=== PATIENT | male | born 1945 | race Caucasian/White ===

== ENCOUNTER 2018-04-11 09:39 | Inpatient (IN) | payer OTHER ==
[~2018-04-11] VITALS: Ht 175.3 cm; Wt 110.2 kg
--- NOTE | ~2018-04-11 | EKG ---
[address] [address] ELECTROCARDIOGRAM REPORT Name: MINO RUSSELL Room #: 350-P ADM IN M.R.#: [id number] Admission: 04/11/18 Attend Phys: Scooter Interiano MD Discharge: Date of : 45 Report #: [id number] THIS REPORT FOR: //name// [facility] ED Test Date: 2018-04-11 Test Time: 09:41:52 Pat Name: MINO RUSSELL Department: Room: Gender: M [employer] Counselor: : 1945 Requested By: Nick Bello Order Number: [id number] MD: Akhil Gonzáles Measurements Intervals [place] Rate: 76 P: 44 TN: 195 QRS: -31 QRSD: 107 T: 114 QT: 376 QTc: 423 Interpretive Statements Sinus rhythm Left axis deviation Compared to ECG 01/18/2009 11:21:59 Left-axis deviation now present Electronically Signed On 04-11-2018 21:34:48 CDT by Akhil Gonzáles [email or web address] <ELECTRONICALLY SIGNED> By: Akhil Gonzáles MD 04/11/18 [id number] Akhil Gonzáles MD /LAINEY
[~2018-04-11 09:39] MED LIST: ASPIR 8181 MG PO; ATIVAN1 MG PO; BLADDER PILL PO; COZAAR 50 MG TA50 M2 PO; EFFEXOR 5050 MG/1 T1 PO; FLOMAX0.4 MG PO; RED YEAST RICE600 M1 PO
[2018-04-11 09:42] VITALS: BP 147/74
[2018-04-11] MEDS ORDERED: VENTOLIN HFA 1818 GM INH (10:01)
[2018-04-11] MEDS ORDERED: VITAMIN D3400 UNIT PO (10:02)
[2018-04-11] MEDS ORDERED: CO Q-10100 MG PO (10:02)
[2018-04-11] MEDS ORDERED: PLAVIX 75 MG TA75 M1 PO (10:02)
[2018-04-11] MEDS ORDERED: PRINIVIL20 MG PO (10:03)
[2018-04-11] MEDS ORDERED: PROSCAR 5MG TABL5 MG PO (10:03)
[2018-04-11] MEDS ORDERED: OMEGA-31000 M1 PO (10:04)
[2018-04-11] MEDS ORDERED: NITROGLYCERIN0.4 MG SUBLING (10:04)
[2018-04-11] MEDS ORDERED: PROMETHAZINE/C118 ML PO (10:05)
[2018-04-11] MEDS ORDERED: PREDNISONE 20 M20 MG PO (10:05)
[2018-04-11 10:07] LABS: BE(vivo) 2.1 mmol/L (-2 to +3); HCO3 27.3 mmol/L (22.0-26.0); PCO2 44.7 mmHg (35.0-45.0); PO2 111.6 mmHg (80.0-100.0); pH 7.403 (7.360-7.450); sO2 98.1 % (92.0-98.0)
[2018-04-11 10:16] LABS: HEMATOCRIT 37.3 % (42.0-52.0); HEMOGLOBIN 12.7 gm/dL (14.0-18.0); MCHC 33.9 g/dL (28.0-37.0); MCV 97.1 fL (80.0-100.0); RBC 3.84 mil/uL (4.50-6.00); RDW 13.2 % (10.5-14.5); WBC 8.1 thou/uL (4.0-11.0)
[2018-04-11 10:29] LABS: APTT 25.8 Seconds (24.5-32.8); PROTIME 9.7 Seconds (9.3-11.4)
[2018-04-11 10:52] LABS: URINE BILIRUBIN NEGATIVE (Negative); URINE BLOOD 2+ (Negative); URINE CLARITY CLEAR; URINE COLOR YELLOW; URINE GLUCOSE-RANDOM* NEGATIVE (Negative); URINE KETONES NEGATIVE (Negative); URINE LEUKOCYTES-REFLEX NEGATIVE (Negative); URINE NITRITE-REFLEX NEGATIVE (Negative); URINE PROTEIN (DIPSTICK) NEGATIVE (Negative); URINE SPECIFIC GRAVITY <= 1.005 (1.005-1.035); URINE UROBILINOGEN 0.2 E.U./dl (0.2-1.0)
[2018-04-11 10:59] LABS: AMP/METHAMP Negative (Negative); BARBITURATES Negative (Negative); BENZODIAZEPINES Negative (Negative); COCAINE Negative (Negative); METHADONE Negative (Negative); OPIATES Negative (Negative); PCP Negative (Negative)
[2018-04-11 11:43] LABS: CASTS None Seen /LPF (None Seen); CRYSTALS None Seen /LPF (None Seen); SQUAMOUS None Seen /LPF (0-3); URINE RBC 0-2 Rare /HPF (0-2); URINE WBC-REFLEX 0-5 Rare /HPF (0-5)
[2018-04-11 11:44] LABS: BACTERIA-REFLEX None Seen /HPF (None Seen)
[2018-04-11 11:58] VITALS: BP 117/99
[2018-04-11 12:16] LABS: CALCIUM 8.8 mg/dL (8.5-10.1); CREATININE 1.4 mg/dL (0.7-1.3); POTASSIUM 4.2 mmol/L (3.5-5.1)
[2018-04-11 14:25] VITALS: BP 181/93
[2018-04-11 16:39] VITALS: BP 132/82
[2018-04-11 20:00] VITALS: BP 152/79
[2018-04-11 23:46] VITALS: BP 162/89
[2018-04-12 03:40] VITALS: BP 153/75
[2018-04-12 07:45] VITALS: BP 138/80
[2018-04-12 11:09] VITALS: BP 138/70
[2018-04-12 14:08] VITALS: BP 138/70
[2018-04-12 14:21] VITALS: BP 138/70
[2018-04-12 15:07] VITALS: BP 138/70
== END 2018-04-12 15:18 | disposition home or self-care (01) | DRG 72 ==
LOC: ER 09:39 → EROBS 11:38 → 3W 11:38 → 2N 13:51 → 3W 14:56
PROVIDERS: Emergency Medicine
DX: G93.40 Encephalopathy, unspecified (principal); R47.81 Slurred speech; I25.5 Ischemic cardiomyopathy; F41.9 Anxiety disorder, unspecified; G47.33 Obstructive sleep apnea (adult) (pediatric); I10 Essential (primary) hypertension; I25.10 Atherosclerotic heart disease of native coronary artery without angina pectoris; F17.210 Nicotine dependence, cigarettes, uncomplicated; E78.00 Pure hypercholesterolemia, unspecified; J44.9 Chronic obstructive pulmonary disease, unspecified; F32.9 Major depressive disorder, single episode, unspecified; J40 Bronchitis, not specified as acute or chronic; N40.0 Benign prostatic hyperplasia without lower urinary tract symptoms; E78.5 Hyperlipidemia, unspecified; Z95.5 Presence of coronary angioplasty implant and graft; Z95.1 Presence of aortocoronary bypass graft; I25.2 Old myocardial infarction; Z88.1 Allergy status to other antibiotic agents; Z88.8 Allergy status to other drugs, medicaments and biological substances; Z79.82 Long term (current) use of aspirin; Z79.899 Other long term (current) drug therapy
CPT/HCPCS: 10779

== ENCOUNTER → 2018-04-28 | Outpatient (CLI) | payer OTHER ==
[~2018-04-28] MED LIST changes: +CO Q-10100 MG PO; +NITROGLYCERIN0.4 MG SUBLING; +OMEGA-31000 M1 PO; +PLAVIX 75 MG TA75 M1 PO; +PREDNISONE 20 M20 MG PO; +PRINIVIL20 MG PO; +PROMETHAZINE/C118 ML PO; +PROSCAR 5MG TABL5 MG PO; +VENTOLIN HFA 1818 GM INH; +VITAMIN D3400 UNIT PO
== END ==
LOC: MRI 04-20 14:46
DX: M75.102 Unspecified rotator cuff tear or rupture of left shoulder, not specified as traumatic (principal); M25.412 Effusion, left shoulder; M19.012 Primary osteoarthritis, left shoulder